=== PATIENT | female | born 1995 | race Two or more races ===

== ENCOUNTER 2018-06-21 05:30 | Emergency (ER) | payer OTHER ==
[2018-06-21] MEDS: SOD CHLORIDE 0.9% 500 ML IV (06:44)
[2018-06-21] MEDS: CEFTRIAXONE 1 GM/50 ML (PMX) 50 ML IVPB (06:44)
[2018-06-21] MEDS: ACETAMINOPHEN 325 MG TAB PO (06:44)
[2018-06-21 06:52] LABS: ADD MAN DIFF? NO
[2018-06-21 06:56] LABS: ABNORMAL IP MESSAGE 1; BASOPHILS % 0.2 % (0.0-2.0); EOSINOPHILS % 0.2 % (0.0-7.0); HEMATOCRIT 35.4 % (37.0-47.0); HEMOGLOBIN 11.1 g/dl (12.0-16.0); LYMPHOCYTES # 1.1 10^3/ul (0.8-2.9); LYMPHOCYTES % 9.1 % (15.0-51.0); MEAN CORPUSCULAR HEMOGLOBIN 23.4 pg (29.0-33.0); MEAN CORPUSCULAR HGB CONC 31.4 g/dl (32.0-37.0); MEAN CORPUSCULAR VOLUME 74.7 fl (82.0-101.0); MONOCYTE # 1.1 10^3/ul (0.3-0.9); MONOCYTES % 9.2 % (0.0-11.0); NEUTROPHIL # 9.7 10^3/ul (1.6-7.5); NEUTROPHILS % 80.8 % (39.0-77.0); PLATELET COUNT 194 10^3/UL (140-415); RED BLOOD COUNT 4.74 10^6/ul (4.20-5.40); RED CELL DISTRIBUTION WIDTH 18.5 % (11.5-14.5)
[2018-06-21 06:57] LABS: MEAN PLATELET VOLUME 11.1 fl (7.4-10.4); POSITIVE DIFF @See below
[2018-06-21 07:10] LABS: URINE PH (Dip) POC 7.5 (5.0-8.5)
[2018-06-21 07:10] LABS: URINE BLOOD (Dip) POC Negative (NEGATIVE); URINE GLUCOSE (Dip) POC Negative (NEGATIVE); URINE KETONES (Dip) POC Negative (NEGATIVE); URINE LEUKOCYTE EST (Dip) POC Negative (NEGATIVE); URINE NITRITE (Dip) POC Negative (NEGATIVE); URINE TOTAL PROTEIN POC Negative (NEGATIVE)
[2018-06-21] MEDS: morphine 4 MG/ML VIAL IV (07:11)
== END 2018-06-21 08:08 | disposition home or self-care (01) ==
LOC: FTE 05:30
DX: O99.89 Other specified diseases and conditions complicating pregnancy, childbirth and the puerperium (principal); H65.91 Unspecified nonsuppurative otitis media, right ear; Z3A.14 14 weeks gestation of pregnancy
CPT/HCPCS: 36415; 76801; 81003; 81025; 84702; 85025; 96374; 96375; 99285-25

== ENCOUNTER 2018-12-13 11:49 | Inpatient (IN) | payer OTHER ==
[2018-12-13] MEDS ORDERED: IBUPROFEN 600 MG TAB PO (14:30)
[2018-12-13] MEDS ORDERED: AMPICILLIN 2 GM/NS (PMX) 100 ML IV (14:30)
[2018-12-13] MEDS ORDERED: MISOPROSTOL 200 MCG TAB PR (14:30)
[2018-12-13] MEDS ORDERED: BUTORPHANOL 2 MG INJ IV (14:30)
[2018-12-13] MEDS ORDERED: LIDOCAINE 1% (MPF) 30 ML INJ INJ (14:30)
[2018-12-13] MEDS ORDERED: OXYTOCIN 30 UNITS/LR 500 ML IV (14:30)
[2018-12-13] MEDS ORDERED: CARBOPROST 250 MCG INJ IM (14:30)
[2018-12-13] MEDS ORDERED: METHYLERGONOVINE 0.2 MG INJ IM (14:30)
[2018-12-13] MEDS: LACTATED RINGER'S 1,000 ML IV ×2 (14:43→18:41)
[2018-12-13 14:49] LABS: ADD MAN DIFF? NO
[2018-12-13 14:51] LABS: WHITE BLOOD COUNT 10.3 10^3/ul (4.8-10.8)
[2018-12-13 14:51] LABS: ABNORMAL IP MESSAGE 1; BASOPHILS % 0.2 % (0.0-2.0); EOSINOPHILS # 0.1 10^3/ul (0.0-0.5); EOSINOPHILS % 0.7 % (0.0-7.0); HEMATOCRIT 31.4 % (37.0-47.0); HEMOGLOBIN 9.5 g/dl (12.0-16.0); LYMPHOCYTES % 19.7 % (15.0-51.0); MEAN CORPUSCULAR HEMOGLOBIN 22.1 pg (29.0-33.0); MEAN CORPUSCULAR HGB CONC 30.3 g/dl (32.0-37.0); MEAN CORPUSCULAR VOLUME 73.2 fl (82.0-101.0); MONOCYTE # 1.1 10^3/ul (0.3-0.9); MONOCYTES % 10.4 % (0.0-11.0); NEUTROPHILS % 68.4 % (39.0-77.0); PLATELET COUNT 216 10^3/UL (140-415); RED BLOOD COUNT 4.29 10^6/ul (4.20-5.40); RED CELL DISTRIBUTION WIDTH 19.5 % (11.5-14.5)
[2018-12-13 15:01] LABS: POSITIVE DIFF @See below
[2018-12-13 15:09] LABS: INR 0.85; PROTIME 11.7 Sec (11.9-14.9); PT RATIO 0.9
[2018-12-13 15:10] LABS: PARTIAL THROMBOPLASTIN TIME 26.3 Sec (23.0-35.0)
[2018-12-13 16:28] LABS: HEPATITIS B SURFACE ANTIGEN NEGATIVE (NEGATIVE)
[2018-12-13] MEDS ORDERED: ONDANSETRON 4 MG INJ IV (18:30)
[2018-12-13] MEDS ORDERED: AMPICILLIN 1 GM/NS (PMX) 50 ML IV (18:30)
[2018-12-13] MEDS ORDERED: NALOXONE (0.4 MG/ML) INJ IV (18:30)
[2018-12-13] MEDS: OXYTOCIN 30 UNITS/LR 500 ML IV (20:45)
[2018-12-13] MEDS: DIPHENHYDRAMINE 50 MG INJ IV (23:12)
[2018-12-14] MEDS: LACTATED RINGER'S 1,000 ML IV (00:20)
[2018-12-14] MEDS: FENTAnyl 2MCG/ML-ROPIV 0.2% 100 ML BAG EPI (01:41)
[2018-12-14] MEDS ORDERED: MINERAL OIL LIGHT 10 ML VIAL TOP ×2 (02:30)
[2018-12-14] MEDS: OXYTOCIN 30 UNITS/LR 500 ML IV ×3 (04:01→08:15)
[2018-12-14] MEDS ORDERED: MAGNESIUM HYDROXIDE 30ML CUP PO (04:30)
[2018-12-14] MEDS ORDERED: DIBUCAINE 1% 30 GM OINT TOP (04:30)
[2018-12-14] MEDS ORDERED: MISOPROSTOL 200 MCG TAB PR (04:30)
[2018-12-14] MEDS ORDERED: SENNA/DOCUSATE NA (8.6MG/50MG) TAB PO (04:30)
[2018-12-14] MEDS ORDERED: CARBOPROST 250 MCG INJ IM (04:30)
[2018-12-14] MEDS ORDERED: METHYLERGONOVINE 0.2 MG INJ IM (04:30)
[2018-12-14] MEDS ORDERED: OXYTOCIN 30 UNITS/LR 500 ML IV (04:30)
[2018-12-14] MEDS ORDERED: ONDANSETRON 4 MG INJ IV (04:30)
[2018-12-14] MEDS ORDERED: ACETAMINOPHEN 325 MG TAB PO ×2 (04:30)
[2018-12-14] MEDS: BENZOCAINE 20% 56 ML SPRAY TOP (06:52)
[2018-12-14] MEDS: LANOLIN HPA 1 PKT TOP (06:52)
[2018-12-14] MEDS: IBUPROFEN 600 MG TAB PO ×2 (06:52→15:46)
[2018-12-14] MEDS: WITCH HAZEL/GLYCERIN PAD PR (06:52)
[2018-12-14] MEDS: LACTATED RINGER'S 1,000 ML IV* ×3 (08:16→20:17)
[2018-12-14 18:51] LABS: RAPID PLASMA REAGIN NONREACTIVE (NR)
[2018-12-15] MEDS: LACTATED RINGER'S 1,000 ML IV* (04:17)
[2018-12-15 08:42] LABS: ADD MAN DIFF? NO
[2018-12-15 08:52] LABS: ABNORMAL IP MESSAGE 1; BASOPHILS % 0.2 % (0.0-2.0); EOSINOPHILS # 0.1 10^3/ul (0.0-0.5); HEMATOCRIT 32.3 % (37.0-47.0); HEMOGLOBIN 9.6 g/dl (12.0-16.0); LYMPHOCYTES # 2.2 10^3/ul (0.8-2.9); LYMPHOCYTES % 26.6 % (15.0-51.0); MEAN CORPUSCULAR HEMOGLOBIN 22.2 pg (29.0-33.0); MEAN CORPUSCULAR HGB CONC 29.7 g/dl (32.0-37.0); MEAN CORPUSCULAR VOLUME 74.6 fl (82.0-101.0); MONOCYTE # 0.7 10^3/ul (0.3-0.9); MONOCYTES % 8.7 % (0.0-11.0); NEUTROPHIL # 5.3 10^3/ul (1.6-7.5); NEUTROPHILS % 63.1 % (39.0-77.0); PLATELET COUNT 186 10^3/UL (140-415); RED BLOOD COUNT 4.33 10^6/ul (4.20-5.40); RED CELL DISTRIBUTION WIDTH 19.8 % (11.5-14.5)
[2018-12-15 08:52] LABS: WHITE BLOOD COUNT 8.4 10^3/ul (4.8-10.8)
[2018-12-15 09:09] LABS: POSITIVE DIFF @See below
[2018-12-15] MEDS: IBUPROFEN 600 MG TAB PO (09:11)
== END 2018-12-15 18:17 | disposition home or self-care (01) | DRG 807 ==
LOC: OBT 11:49 → PP1 12-14 05:25 → L-D 11:50 → OBT 14:27 → L-D 14:28
PROVIDERS: Specialist
PROC: 4A1HXCZ Monitoring of Products of Conception, Cardiac Rate, External Approach (ICD-10-PCS; 2018-12-13)
PROC: 10E0XZZ Delivery of Products of Conception, External Approach (ICD-10-PCS; principal; 2018-12-14)
DX: O36.8130 Decreased fetal movements, third trimester, not applicable or unspecified (principal); Z37.0 Single live birth; Z3A.38 38 weeks gestation of pregnancy
CPT/HCPCS: 62322; 76818; 85025; 85610; 85730; 86592; 86850; 86900; 86901; 87340; 99464